=== PATIENT | female | born 1975 | race Caucasian/White ===

== ENCOUNTER 2018-07-27 08:35 | Outpatient (CLI) | payer OTHER ==
--- NOTE | 2018-07-27 09:46 | MMO ---
BILATERAL MAMMOGRAMS: HISTORY: Screening mammography. COMPARISON: 10/23/2015 FINDINGS: Extremely dense fibroglandular tissue throughout each breast decreases sensitivity of exam. No domin ant mass or suspicious calcifications. The study was evaluated with the assistance of computer aided detection. IMPRESSION: BI-RADS Category 1-Negative. Suggest routine followup. POS: [facility]
== END 2018-07-27 08:36 | disposition home or self-care (01) ==
LOC: SCSMAMMO 08:35
PROVIDERS: ATTEND Obstetrics & Gynecology
DX: Z12.31 Encounter for screening mammogram for malignant neoplasm of breast (principal)
CPT/HCPCS: 77067